=== PATIENT | female | born 1965 | race American Indian/Alaskan Native ===

== ENCOUNTER 2018-03-26 05:37 | Day surgery (SDC) | payer OTHER ==
[~2018-03-26] VITALS: Ht 167.6 cm; Wt 108.0 kg
[~2018-03-26 05:37] MED LIST: ADIPEX-P37.5 MG PO; BUPROPION XL300 MG PO; CIPROFLOXACIN500 MG PO; CLARITIN10 MG PO; MOTRIN800 MG PO; NORCO 5-325 TA1 EACH PO; PERCOCET 5-3251 EACH PO; PHENTERMINE HCL30 MG PO; VITAMIN A8000 UNIT PO; VITAMIN B COMP1 EACH PO; VITAMIN D5000 UNIT PO
--- NOTE | 2018-03-26 08:08 | NUR ---
03/26/18 0808 Deedee Sanchez 0801 PATIENT ARRIVES TO PACU AWAKE, ALERT AND ORIENTED X3. RESP EVEN AND UNLABORED, ROOM AIR SATS 97%. DENIES PAIN OR NAUSEA. 0807 PATIENT SITTING UP DRINKING WATER.
--- NOTE | 2018-03-26 11:24 | NUR ---
PT ALERT, ORIENTED AND SEEMED RELAXED. PT HAD A GOOD SENSE OF HUMOR, AND SEEMED PREPARED FOR TODAY. PT DID REQUEST PRAYER, ESPECIALLY FOR HER BRO IN [place] WHO IS BATTLING CANCER. SHE ALSO REQUESTED I CONTACT THE ORNAMENTAL METAL ERECTOR APPRENTICE AT HIS HOSPITAL-WHICH I DID. WILL FOLLOW NEEDED
--- NOTE | 2018-03-27 17:41 | OR ---
[facility] [address], [place] [address] Signed DATE OF OPERATION: 03/26/2018 SURGEON: Lizbet White MD PREOPERATIVE DIAGNOSIS: Left perianal skin lesion (5 mm). POSTOPERATIVE DIAGNOSIS: Left perianal skin lesion (5 mm). PROCEDURE: Excision of perianal skin lesion. ESTIMATED BLOOD LOSS: None. INDICATIONS: Olga is a 53-year-old female whom we have helped previous in our office. She came with a 5 mm ying colored firm lesion just to the left of the anus. It is out on her skin just a few centimeters from the anus. She has had a previous melanoma excised over the left scapula and also suffers with hidradenitis in her axilla. There was some concern this could be a basal cell carcinoma versus a cyst. Nevertheless, it needs to be removed full thickness for definitive diagnosis and treatment. I explained to Olga that because of its location and the need to be able to retract the gluteal skin apart, I was going to need to do this in the operating room with the help of an OR nurse and under good lighting. We would use a radial elliptical incision and remove it full-thickness and then closed that incision primarily. She understands the lesion will be sent to the Pathology Department for definitive diagnosis. There is risk to the surgery including, but not limited to bleeding, infection, scarring, change in contour of the skin, as well as possible need for additional surgery based on pathology results. She had expressed understanding and wished to proceed. PROCEDURE NOTE: I met with Olga and our nurse in our preop area. We were able to easily locate the lesion and marked that appropriately. After this, Olga was taken into our operating room and placed in the prone jackknife position under monitored anesthesia care. She was given preoperative antibiotics along with subcutaneous heparin. SCDs were utilized. She was then prepped and draped in usual sterile fashion. With the help of the nurse then, we were able to hold her skin apart and I was able to infiltrate local anesthetic in and around the lesion. We then used a radial elliptical incision to remove the Electronically Signed By: LIZBET WHITE MD 03/27/18 1741 PATIENT NAME: OLGA MOE OPERATIVE REPORT DATE OF : 65 REPORT #: [id number] PHYSICIAN: LIZBET WHITE MD PCP: MARCELL MARY REPORT IS CONFIDENTIAL AND NOT TO BE RELEASED WITHOUT AUTHORIZATION [facility] [address], [place] [address] Signed lesion full thickness. The dermis was then reapproximated with interrupted 3-0 subcuticular Monocryl sutures. The skin edges were reapproximated with a running 6-0 fast absorbing plain gut suture. Some dry gauze was placed along with her underwear. She was then rotated into the supine position on her hospital bed and taken into recovery room in stable condition. MD AUGUST Starr/GERALDINEL /[id number] cc: MD Vikram Starr, LEV Avila Copies: LIZBET WHITE MD,MARCELL ZHANG MD ~ Electronically Signed By: LIZBET WHITE MD 03/27/18 1741 PATIENT NAME: OLGA MOE [facility] OPERATIVE REPORT DATE OF : 65 REPORT #: [id number] PHYSICIAN: LIZBET WHITE MD PCP: MARCELL MARY REPORT IS CONFIDENTIAL AND NOT TO BE RELEASED WITHOUT AUTHORIZATION
== END 2018-03-26 08:30 | disposition home or self-care (01) ==
LOC: DS 05:37
PROVIDERS: Colon & Rectal Surgery
PROC: 0HQ8XZZ Repair Buttock Skin, External Approach (ICD-10-PCS; 2018-03-26)
PROC: 0HB8XZZ Excision of Buttock Skin, External Approach (ICD-10-PCS; principal; 2018-03-26 06:45)
DX: D23.5 Other benign neoplasm of skin of trunk (principal); C43.59 Malignant melanoma of other part of trunk; E66.9 Obesity, unspecified; F32.9 Major depressive disorder, single episode, unspecified; Z79.899 Other long term (current) drug therapy; Z87.891 Personal history of nicotine dependence; Z68.38 Body mass index [BMI] 38.0-38.9, adult; Z88.0 Allergy status to penicillin; Z88.8 Allergy status to other drugs, medicaments and biological substances
CPT/HCPCS: 00902; J1644; J1885; J2250; J2405; J2704; J3010; J7120

== ENCOUNTER 2020-04-18 06:00 | Day surgery (SDC) | payer OTHER ==
[~2020-04-18] VITALS: Ht 167.6 cm; Wt 114.5 kg
--- NOTE | 2020-04-18 08:18 | NUR ---
04/18/20 0818 Raquel Erickson PT ARRIVES TO PACU AWAKE, NO C/O PAIN. SHE HAS QUESTIONS ABOUT HER PROCEDURE AND AFTERCARE, THEY ARE BRIEFLY DISCUSSED. THE PT IS ENSURED SHE WILL GET DETAILED INFORMATION BEFORE SHE LEAVES TODAY.
--- NOTE | 2020-04-18 09:47 | NUR ---
PT IS BACK TO DS FROM PACU. SHE IS REPORTING MINIMAL PAIN RATED 3/10. SHE HAS MET ALL DC CRITERIA, HOWEVER SHE DOESN'T HAVE BLADDER CONTROL. SHE IS GOING TO STAY UNTIL SHE IS ABLE TO VOID ON HER OWN. CALL LIGHT WITHIN REACH. SHE IS REQUESTING WATER. NO ADDITIONAL NEEDS.
--- NOTE | 2020-04-18 10:20 | OR ---
[facility] [address], [place] [address] Signed DATE OF OPERATION: 04/18/2020 SURGEON: Lizbet White MD PREOPERATIVE DIAGNOSIS: Pilonidal cyst. POSTOPERATIVE DIAGNOSIS: Pilonidal cyst. PROCEDURE: Pilonidal cystectomy. ESTIMATED BLOOD LOSS: None. INDICATIONS: Olga is a 55-year-old obese female, who was asked to see me for a pilonidal cyst. She also talks about hidradenitis suppurativa in her axillary areas. She has been to a dermatologist managing partner in the past. In May 2019, she said the pilonidal cyst was quite miserable. It finally broke open and drained. She said overall it is better. However, if she sits for too long, the pilonidal cyst does bother her. On exam, she has the classic pits in the gluteal crease. There are no local signs or symptoms of infection at the time of exam. I explained to Olga the nature of a pilonidal cyst along with the surgery required to remove that cyst. We leave those open and allow them to heal in secondarily with saline gauze. She understands there is risk of surgery including, but not limited to bleeding, infection, scarring, change in contour of the skin as well as recurrent pilonidal cyst. She had expressed understanding and wished to proceed. DESCRIPTION OF PROCEDURE: I met with Olga in our preop area. She underwent a saddle block by our nurse preschool teacher. After this, she was taken in the operating room and placed in the prone ileana-knife position with appropriate padding and monitoring. She was given monitored anesthesia care by our nurse preschool teacher. She was prepped and draped in usual sterile fashion. She was given preoperative antibiotics. After the saddle block, she was given her subcutaneous heparin. SCDs were utilized. We then utilized our standard vertical elliptical incision with a #15 blade knife to surround the pits in the midline. We went down and around these with the cautery almost to the sacrum itself. Fortunately, she had no sinus tracts that we had to follow. This will leave the skin on the edges from the sacrum. Local anesthetic was injected in the wound. It was irrigated and suctioned Electronically Signed By: LIZBET WHITE MD 04/18/20 1020 PATIENT NAME: OLGA MOE BARBY OPERATIVE REPORT DATE OF : 65 REPORT #: [id number] PHYSICIAN: LIZBET WHITE MD PCP: MARCELL MARY REPORT IS CONFIDENTIAL AND NOT TO BE RELEASED WITHOUT AUTHORIZATION [facility] [address], [place] [address] Signed out until clear. We packed the wound with saline soaked gauze and covered that with a dry ABD and her mesh underwear. After this, Olga was rotated into the supine position onto her hospital bed and taken into recovery room in stable condition. She tolerated the procedure quite well. Lizbet White MD ALB/MODL /[id number] cc: LEV Manley MD Mershed Alsamara, MD Copies: MARCELL MARY ANDREW L MD ALSAMARA, MERSHED MD ~ Electronically Signed By: LIZBET WHITE MD 04/18/20 1020 PATIENT NAME: OLGA MOE BARBY OPERATIVE REPORT DATE OF : 65 REPORT #: [id number] PHYSICIAN: LIZBET WHITE MD PCP: MARCELL MARY REPORT IS CONFIDENTIAL AND NOT TO BE RELEASED WITHOUT AUTHORIZATION
--- NOTE | 2020-04-18 11:32 | NUR ---
LE 1040: PT WOULD LIKE TO TRY AND GET UP AND USE THE RESTROOM. SHE IS ABLE TO AMBULATE HERSELF. SHE REPORTS BEING ABLE TO CONTROL HER BLADDER FUNCTION. SHE IS EDUCATED ON HOW TO BEST DRESS HERSELF AND TO OPEN HER CURTAIN WHEN SHE IS READY. LE 1100: PT IS GIVEN VERBAL DC INSTRUCTIONS, SHE VERBALIZES UNDERSTANDING. HER QUESTIONS ARE ASKED AND ANSWERED. SHE IS TAKEN TO VEHICLE VIA WC. SHE IS ABLE TO TRANSFER HERSELF FROM WC TO CAR.
== END 2020-04-18 11:10 | disposition home or self-care (01) ==
LOC: DS 06:00
PROVIDERS: ATTEND Colon & Rectal Surgery
PROC: 0JB90ZZ Excision of Buttock Subcutaneous Tissue and Fascia, Open Approach (ICD-10-PCS; principal; 2020-04-18 06:45)
DX: L05.91 Pilonidal cyst without abscess (principal); I10 Essential (primary) hypertension; E66.01 Morbid (severe) obesity due to excess calories; Z87.891 Personal history of nicotine dependence; Z88.0 Allergy status to penicillin; Z88.6 Allergy status to analgesic agent; Z91.018 Allergy to other foods; Z68.41 Body mass index [BMI] 40.0-44.9, adult
CPT/HCPCS: 00300; J0690; J2001; J2250; J2405; J2704; J7121